=== PATIENT | male | born 1950 | race Caucasian/White ===

== ENCOUNTER 2020-09-04 14:26 | Emergency (ER) | payer MEDICARE, SELFPAY ==
[2020-09-04] VITALS (22 sets, daily range): BP systolic 122–160; BP diastolic 59–106; PULSE 47–68; RESP 15–30; TEMP 36.6; O2SAT 93–98
--- NOTE | 2020-09-04 14:39 | DI.CT.S_ITS ---
PROCEDURE: CT HEAD/BRAIN WO CON INDICATIONS: vomiting, dizzyness TECHNIQUE: Noncontrast 4.5 mm thick angled axial sections acquired from the foramen magnum to the vertex, with coronal and sagittal reformats. For radiation dose reduction, the following was used: automated exposure control, adjustment of mA and/or kV according to patient size. COMPARISON: None. FINDINGS: Image quality: Excellent. CSF spaces: Basal cisterns are patent. No extra-axial fluid collections. The ventricles are symmetric in size and shape. Brain: No intracranial bleeds or masses. There is cerebral volume loss for age, with resultant ventricular and sulcal prominence. There are periventricular and deep white matter chronic small vessel ischemic changes. There is intracranial internal carotid artery atherosclerosis. Skull and face: Calvarium and visualized facial bones appear intact, without suspicious lesions. Sinuses: Visualized sinuses and mastoids are clear. IMPRESSION: No mass lesion seen, no ischemic injury found. No hydrocephalus identified. Normal for age. Dictated by: Mathew Orellana M.D. on 09/04/2020 at 14:53 Approved by: Mathew Orellana M.D. on 09/04/2020 at 14:54
[2020-09-04 15:13] LABS: Add Manual Diff / Slide Review NO; Basophils Absolute Auto 0 /uL (0-100); Basophils Percent Auto 0.2 % (0-2); Creatine Kinase 267 U/L (55-170); Eosinophils Absolute Auto 0 /uL (0-450); Hematocrit 44.9 % (41-53); Hemoglobin 15.3 g/dL (13.5-17.5); Lymphocytes Absolute Auto 500 /uL (1100-4500); Lymphocytes Percent Auto 3.2 % (25-40); Mean Corpuscular Hemoglobin 31.9 PG (26-34); Mean Corpuscular Volume 93.7 fL (80-100); Monocytes Absolute Auto 600 /uL (0-900); Monocytes Percent Auto 4.2 % (3-14); Neutrophils Absolute Auto 13700 /uL (1500-7000); Neutrophils Percent Auto 92.4 % (50-75); Platelet Count 183 X10^3/uL (150-400); Red Blood Cell Count 4.79 X10^6/uL (4.5-5.9); Red Cell Distribution Width 13.4 % (11.6-14.8); White Blood Cell Count 14.9 X10^3/uL (4.5-11.0)
[2020-09-04 15:14] LABS: Alanine Aminotransferase 21 IU/L (<50); Albumin 4.8 g/dL (3.5-5.0); Albumin Globulin Ratio 1.7 (1.0-2.8); Alkaline Phosphatase 75 U/L (38-126); Aspartate Aminotransferase 32 IU/L (17-59); BUN Creatinine Ratio 23.5 (6-22); Bilirubin Total 1.1 mg/dL (0.2-1.3); Blood Urea Nitrogen 19 mg/dL (9-20); Calcium 9.4 mg/dL (8.4-10.2); Carbon Dioxide 27 mmol/L (22-32); Chloride 101 mmol/L (98-107); Estimated Glomerular Filt Rate > 60.0 mL/min (>60); Globulin 2.8 g/dL (1.7-4.1); Glucose 154 mg/dL (80-110); HEMOLYSIS < 15 (0-50); Potassium 3.5 mmol/L (3.4-5.1); Sodium 137 mmol/L (137-145); Total Protein 7.6 g/dL (6.3-8.2)
[2020-09-04 15:17] LABS: Prothrombin Time 11.9 SECONDS (10.1-12.7)
[2020-09-04 15:26] LABS: Troponin I 0.014 ng/mL (0.01-0.034)
[2020-09-04 15:28] LABS: Creatine Kinase MB 7.98 ng/mL (<2.37)
--- NOTE | 2020-09-04 15:31 | DI.RAD.S_ITS ---
PROCEDURE: XR CHEST 1V INDICATIONS: Flu like symptoms TECHNIQUE: One view of the chest was acquired. COMPARISON: None. FINDINGS: Surgical changes and devices: None. Lungs and pleura: Lungs are mildly abnormal with a mild interstitial prominence. No pleural effusions or pneumothorax. Mediastinum: Mediastinal contours appear normal. Heart size is normal. Bones and chest wall: No suspicious bony lesions. Overlying soft tissues appear unremarkable. IMPRESSION: Mild interstitial prominence, chronicity uncertain. Definite pneumonia is not found. Dictated by: Mathew Orellana M.D. on 09/04/2020 at 15:56 Approved by: Mathew Orellana M.D. on 09/04/2020 at 15:57
[2020-09-04 15:55] LABS: COVID19 -Nasal RAPID Negative (Negative)
--- NOTE | 2020-09-04 16:19 | ED.DIZZY ---
HPI - Dizziness General Chief Complaint: Dizziness Stated Complaint: vomiting/ loss of balance to the left Time Seen by Provider: 09/04/20 15:56 Source: patient Mode of arrival: Ambulatory Limitations: no limitations History of Present Illness HPI Narrative: This is a 70-year-old male comes emergency department he states about 1600 yesterday he felt nauseated and 1 episode of vomiting but felt fine. At 8:00 a.m. he vomited again and was stumbling, he noticed that he always felt his left side he felt like the room was spinning to the left and occasionally felt like the lights were spinning when he would hold still and they would move left. Patient denies any headache, he denied any double vision but states here during our NIH exam he did note some double vision briefly. No chest pain, no shortness of breath, no abdominal pain. No syncope. No numbness, tingling or weakness in his extremities he did not appreciated any speech changes. Did not know any facial drooping but states he did not really look and a mere. He does live alone. He has several skin tears on the left arm. States he has past medical history of an WI with a stent placed in 2011, he had reaction to Plavix sounds like a GI bleed. He does not take any medications and has not seen a physician in the last 8 years. He has had EGD after Plavix and noted to have an ulcer and his stent placement are his only prior surgeries. No tobacco, no alcohol, occasional THC. He does live alone. Related Data Home Medications Medication Instructions Recorded Confirmed No Known Home Medications 09/04/20 09/04/20 Allergies Allergy/AdvReac Type Severity Reaction Status Date / Time No Known Drug Allergies Allergy Verified 09/04/20 14:36 Review of Systems Review of Systems ROS Unobtainable: All systems reviewed & are unremarkable except as noted in HPI and below Patient History Medical History (Updated 09/04/20 @ 16:51 by Kelsey López DO) Myocardial infarction (Acute) Surgical History (Updated 09/04/20 @ 16:51 by Kelsey López DO) H/O heart artery stent (Acute) Social History Smoking Status: Never smoker Smoking Status: Never smoker Substance Use Type: marijuana Exam Narrative Exam Narrative: GEN: well nourished, well appearing male, alert and oriented x 3, patient appears to be in mild distress. HEENT: Atraumatic, pupils are equal round reactive to light, patient's right pupil is 1 mm in difference to the left when does not have light shining any pupils, when I shine a light they are equal, extraocular movements are intact, no nystagmus appreciated, nares are clear, TMs are clear with no fluid, there is no conjunctival pallor. Throat is clear without any exudates, erythema, tonsillar enlargement or uvular deviation HEART: Regular rate and rhythm without murmur, clicks, rubs. No carotid bruits, pulses are equal in upper and lower extremities LUNGS:Lungs clear to auscultation, no wheezes, rales, crackles, chest moves symmetrically ABD:bowel sounds normal, soft, non-tender, no guarding, rebound, rigidity, no masses noted, no hepatosplenomegaly MSCL: Non-tender, no muscle atrophy, muscles strength 5/5 upper and lower extremities, full range of motion NEURO:CN 2-12 intact, sensation normal, reflexes 2/4 upper and lower extremities. finger nose finger test normal, patient has difficulty with left leg on heel-fulton, no issues with right leg on heel-fulton Initial Vital Signs Initial Vital Signs: Vital Signs Temperature 97.8 F 09/04/20 14:34 Pulse Rate 52 L 09/04/20 14:34 Respiratory Rate 22 09/04/20 14:34 Blood Pressure 160/74 H 09/04/20 14:34 Pulse Oximetry 98 09/04/20 14:34 Scores NIH Stroke Scale Level of Conciousness: Alert, keenly responsive Ask month/age: Answers both questions correctly. Open/close eyes, close hand: Performs both tasks correctly Best gaze horizontal: Normal Visual beyer: Partial hemianopia (? ) Facial palsy: Normal symetrical movement Left arm drift: No drift for full 10 sec Right arm drift: No drift for full 10 sec Left leg drift: No drift for full 5 sec Right leg drift: No drift for full 5 sec Limb ataxia: Present in one limb Sensory on face/arms/legs: Normal, no sensory loss Best language: No aphasia, normal Dysarthria: Normal Extinction or inattention: No abnormality Total NIH Stroke scale score: 2 Course Orders Ordered: ED Orders 09/04/20 14:39 CT head/brain wo con Stat Urinalysis Screen (Dip Only) Stat EKG-12 Lead Stat 09/04/20 14:52 Complete Blood Count AUTO DIFF Stat Comprehensive Metabolic Panel Stat Prothrombin Time INR Stat cardiac panel [Troponin & CK Cardiac Panel] Stat 09/04/20 15:31 XR chest 1V Stat 09/04/20 15:35 COVID19 -ED/INPAT/OR/L&D Stat 09/04/20 16:47 CT angio head and neck Stat Discontinued Medications Aspirin (Aspirin Chew) 324 mg PO NOW ONE Stop: 09/04/20 16:48 Last Admin: 09/04/20 17:17 Dose: 324 mg Documented by: BTONER Ondansetron HCl (Zofran) 4 mg IV NOW ONE Stop: 09/04/20 17:19 Last Admin: 09/04/20 17:21 Dose: 4 mg Documented by: BTONER Consultations Consultation #1: Telestroke paged. Spoke with Dr. Bridges from [place], patient may be code IR candidate. She feels will likely transfer even if he is not. Time: 18:18 Vital Signs Vital signs: Vital Signs - 8 hr 09/04/20 14:34 09/04/20 14:55 09/04/20 15:00 Temperature 97.8 F Pulse Rate 52 L 53 L 48 L Respiratory Rate 22 22 19 Blood Pressure 160/74 H 148/67 H Pulse Oximetry 98 98 97 09/04/20 15:30 09/04/20 15:31 Temperature Pulse Rate 50 L 47 L Respiratory Rate 18 16 Blood Pressure 141/66 H Pulse Oximetry 94 96 MDM - Dizziness Lab Data Attestation: I reviewed the patient's lab results. Lab results narrative: Patient has leukocytosis at 14.9, normal hemoglobin and platelets, glucose is 154 but otherwise normal electrolytes, CK is 267 with a elevation of CK-MB and min troponin is 0.014 and a normal range. Result diagrams: 09/04/20 14:52 09/04/20 14:52 Labs: Lab Results 09/04/20 09/04/20 09/04/20 Range/Units 14:52 14:52 14:52 WBC 14.9 H (4.5-11.0) X10^3/uL RBC 4.79 (4.5-5.9) X10^6/uL Hgb 15.3 (13.5-17.5) g/dL Hct 44.9 (41-53) % MCV 93.7 (80-100) fL MCH 31.9 (26-34) PG MCHC 34.0 (30-36) % RDW 13.4 (11.6-14.8) % Plt Count 183 (150-400) X10^3/uL Neut % (Auto) 92.4 H (50-75) % Lymph % (Auto) 3.2 L (25-40) % [place] % (Auto) 4.2 (3-14) % Eos % (Auto) 0.0 L (2-4) % Baso % (Auto) 0.2 (0-2) % Neut # (Auto) 32647 H (8712-7703) /uL Lymph # (Auto) 500 L (1133-4046) /uL [place] # (Auto) 600 (0-900) /uL Eos # (Auto) 0 (0-450) /uL Baso # (Auto) 0 (0-100) /uL PT 11.9 (10.1-12.7) SECONDS INR 1.0 (0.9-1.3) Sodium 137 (137-145) mmol/L Potassium 3.5 (3.4-5.1) mmol/L Chloride 101 (98-107) mmol/L Carbon Dioxide 27 (22-32) mmol/L BUN 19 (9-20) mg/dL Creatinine 0.81 (0.66-1.25) mg/dL Estimated GFR > 60.0 (>60) mL/min BUN/Creatinine Ratio 23.5 H (6-22) Glucose 154 H (80-110) mg/dL Calcium 9.4 (8.4-10.2) mg/dL Total Bilirubin 1.1 (0.2-1.3) mg/dL AST 32 (17-59) IU/L ALT 21 (<50) IU/L Alkaline Phosphatase 75 (38-126) U/L Total Creatine Kinase (55-170) U/L CK-MB (CK-2) (<2.37) ng/mL CK-MB (CK-2) Rel Index (1.5-5.0) % Troponin I Cancelled Total Protein 7.6 (6.3-8.2) g/dL Albumin 4.8 (3.5-5.0) g/dL Globulin 2.8 (1.7-4.1) g/dL Albumin/Globulin Ratio 1.7 (1.0-2.8) COVID-19 PCR (Negative) 09/04/20 09/04/20 Range/Units 14:52 15:35 WBC (4.5-11.0) X10^3/uL RBC (4.5-5.9) X10^6/uL Hgb (13.5-17.5) g/dL Hct (41-53) % MCV (80-100) fL MCH (26-34) PG MCHC (30-36) % RDW (11.6-14.8) % Plt Count (150-400) X10^3/uL Neut % (Auto) (50-75) % Lymph % (Auto) (25-40) % [place] % (Auto) (3-14) % Eos % (Auto) (2-4) % Baso % (Auto) (0-2) % Neut # (Auto) (8127-5796) /uL Lymph # (Auto) (9554-1460) /uL [place] # (Auto) (0-900) /uL Eos # (Auto) (0-450) /uL Baso # (Auto) (0-100) /uL PT (10.1-12.7) SECONDS INR (0.9-1.3) Sodium (137-145) mmol/L Potassium (3.4-5.1) mmol/L Chloride (98-107) mmol/L Carbon Dioxide (22-32) mmol/L BUN (9-20) mg/dL Creatinine (0.66-1.25) mg/dL Estimated GFR (>60) mL/min BUN/Creatinine Ratio (6-22) Glucose (80-110) mg/dL Calcium (8.4-10.2) mg/dL Total Bilirubin (0.2-1.3) mg/dL AST (17-59) IU/L ALT (<50) IU/L Alkaline Phosphatase (38-126) U/L Total Creatine Kinase 267 H (55-170) U/L CK-MB (CK-2) 7.98 H (<2.37) ng/mL CK-MB (CK-2) Rel Index 3.0 (1.5-5.0) % Troponin I 0.014 Total Protein (6.3-8.2) g/dL Albumin (3.5-5.0) g/dL Globulin (1.7-4.1) g/dL Albumin/Globulin Ratio (1.0-2.8) COVID-19 PCR Negative (Negative) Imaging Data CT scan - head: Attestation: I personally reviewed and interpreted this imaging study as follows: Radiologist's Impression: Matteo Zayas 70 M [address] [address] [address] Scan Report Signed Patient: Matteo Zayas CMR#: [id number] : 1950cct:[id number] Age/Sex: 70 / MDate of Service: 09/04/20 Loc: ED Accession Number: [id number] Procedure: CT head/brain wo con Ordering Provider: Kelsey López D.O. PROCEDURE: CT HEAD/BRAIN WO CON INDICATIONS: vomiting, dizzyness TECHNIQUE: Noncontrast 4.5 mm thick angled axial sections acquired from the foramen magnum to the vertex, with coronal and sagittal reformats. For radiation dose reduction, the following was used: automated exposure control, adjustment of mA and/or kV according to patient size. COMPARISON: None. FINDINGS: Image quality: Excellent. CSF spaces: Basal cisterns are patent. No extra-axial fluid collections. The ventricles are symmetric in size and shape. Brain: No intracranial bleeds or masses. There is cerebral volume loss for age, with resultant ventricular and sulcal prominence. There are periventricular and deep white matter chronic small vessel ischemic changes. There is intracranial internal carotid artery atherosclerosis. Skull and face: Calvarium and visualized facial bones appear intact, without suspicious lesions. Sinuses: Visualized sinuses and mastoids are clear. IMPRESSION: No mass lesion seen, no ischemic injury found. No hydrocephalus identified. Normal for age. Dictated by: Mathew Orellana M.D. on 09/04/2020 at 14:53 Approved by: Mathew Orellana M.D. on 09/04/2020 at 14:54 Chest x-ray: Attestation: I personally reviewed and interpreted this imaging study as follows: Radiologist's Impression: [address] [address] XRay Report Signed Patient: Matteo Zayas CMR#: [id number] : 8Acct:[id number] Age/Sex: 70 / MDate of Service: 09/04/20 Loc: ED Accession Number: [id number] Procedure: XR chest 1V Ordering Provider: Kelsey López D.O. PROCEDURE: XR CHEST 1V INDICATIONS: Flu like symptoms TECHNIQUE: One view of the chest was acquired. COMPARISON: None. FINDINGS: Surgical changes and devices: None. Lungs and pleura: Lungs are mildly abnormal with a mild interstitial prominence. No pleural effusions or pneumothorax. Mediastinum: Mediastinal contours appear normal. Heart size is normal. Bones and chest wall: No suspicious bony lesions. Overlying soft tissues appear unremarkable. IMPRESSION: Mild interstitial prominence, chronicity uncertain. Definite pneumonia is not found. Dictated by: Mathew Orellana M.D. on 09/04/2020 at 15:56 Approved by: Mathew Orellana M.D. on 09/04/2020 at 15:57 CTA - brain/neck: Attestation: I personally reviewed and interpreted this imaging study as follows: Radiologist's Impression: Thomas López, DO [facility] Patient Imaging - Matteo Zayas 70 M 1950 ACTIVITY DATE EXAM STATUS AUTHOR 09/04/20 16:47 Signed Skyler Lo 09/04/20 15:31 Signed Mathew Orellana 09/04/20 14:[address] [address] [address] Scan Report Signed Patient: Matteo Zayas CMR#: [id number] : 8Acct:[id number] Age/Sex: 70 / MDate of Service: 09/04/20 Loc: ED Accession Number: [id number] Procedure: CT angio head and neck Ordering Provider: Kelsey López D.O. PROCEDURE: CT ANGIO HEAD AND NECK INDICATIONS: vertigo type symptoms, falls to left TECHNIQUE: After the administration of intravenous contrast, 1 mm thick sections acquired from the aortic arch through the [place] of [place]. Post-contrast 4.5 mm thick sections then re-acquired from the foramen magnum to the vertex. 3-dimensional lffvsny-akjdnuben-ritftcpsol (MIP) and/or volume rendering reformats were acquired of the central intracranial vasculature and neck separately. COMPARISON: [facility], CR, XR CHEST 1V, 09/04/2020, 15:33. [facility], CT, CT HEAD/BRAIN WO CON, 09/04/2020, 14:38. FINDINGS: Image quality: Excellent. BRAIN: CSF spaces: Ventricles are normal in size and shape. Basal cisterns are patent. No extra-axial fluid collections. Brain: No midline shift. No intracranial bleeds or masses. [place]-white matter interface appears intact. Skull and face: Calvarium and facial bones appear intact, without suspicious lesions. Orbits appear normal. Sinuses: Sinuses and mastoids are clear. HEAD CT ANGIOGRAPHY: Anterior circulation: Intracranial internal carotid arteries are normal in size and flow. The flow within the paired anterior cerebral arteries is normal and symmetric. The flow within the middle cerebral arteries is normal and symmetric. The anterior communicating artery is seen. No aneurysms are seen. Posterior circulation: Areas of prominent stenosis (at least 90%) can be seen within the right V4 segment. Given the appearance, please consider intramural thrombus. The left V4 segment is within normal limits. There is a normal appearing basilar artery. Flow within the posterior cerebral arteries is normal and symmetric. No aneurysms are seen. NECK CT ANGIOGRAPHY: Carotid system: The great vessels demonstrate a conventional anatomy as they arise from the aortic arch. The origins of the common carotid arteries appear patent. The common carotid arteries demonstrate normal caliber and courses. The bifurcation regions demonstrate atherosclerotic calcification and irregularity. There is approximately 70% stenosis seen involving the right proximal internal carotid artery. There is no hemodynamically significant stenosis seen involving the left proximal internal carotid artery. The more distal internal carotid arteries demonstrate normal caliber. The internal carotid arteries demonstrate prominent tortuosity. Posterior circulation: The origins of the vertebral arteries both appear widely patent. The more superior extracranial portions of both vertebral arteries also demonstrate normal courses and calibers. They join to form a normal appearing basilar artery. Soft tissues: Visualized neck soft tissues demonstrate no suspicious abnormalities. Bones: No suspicious bony lesions. There is a chronic appearing anterior wedge deformity of T3, with approximately 50% loss of height. Age-appropriate bony degenerative changes are seen. IMPRESSION: Focal high-grade stenosis seen involving the right V4 segment. Given the appearance, please consider intramural thrombus. No findings of dissection can be seen. There is approximately 70% stenosis seen involving the right proximal internal carotid artery. Remote appearing T3 wedge deformity. Any quantitative measurements of stenosis were performed using NASCET criteria. Dictated by: Skyler Lo M.D. on 09/04/2020 at 17:01 Approved by: Skyler Lo M.D. on 09/04/2020 at 17:06 ECG Data Attestation: I personally reviewed and interpreted this ECG as follows: Prior ECG tracings: available for review Interpretation: Sinus bradycardia rate of 46 P are 181 QRS of 110 and QTC of 425. Patient has 3 of inversion in 2 3 and AVF. No elevation noted. T-wave inverted in lateral leads as well. Patient has a prior EKG from 2013 which does have a little bit of ST depression in V4 through 6 but does not have the other ST changes noted today. MDM Narrative Medical decision making narrative: Patient comes in today with greater than 12 hours on set from his symptoms at approximately 8-9 p.m.. Patient has continued to have symptoms. Initial head CT is negative for bleed, he was given aspirin and CT angiography was obtained patient may be a candidate for code IR. Labs showed leukocytosis but no other major changes he does have changes on his EKG but has a history of prior cardiac stent which he has not followed for and does not take any medications regularly, he has not followed with a primary care physician for at least 8 years. Angiography shows a focal stenosis at the right V4 segment. Discussed with telestroke, awaiting callback as patient is potential code IR although very close on timeframe from transfer center. Patient given ASA 324mg and has not had any worsening symptoms but not improving. Signed out to Dr. Pond while awaiting official word on transfer. Critical Care Time Critical Care Time Critical Care Time: Yes Total Critical Care Time: 90 Attestation: The high probability of a clinically significant, sudden or life threatening deterioration of the [neurologic] system(s) required my full and direct attention, intervention and personal management. The aggregate critical care time was [90] minutes. This time is in addition to time spent performing reported procedures but includes the following: [x] Data Review and interpretation [x] Patient assessment and monitoring of vital signs [x] Documentation [x] Medication orders and management Discharge Plan Departure Patient Disposition: [facility] Clinical Impression: Acute CVA (cerebrovascular accident) Prescriptions: No Action No Known Home Medications RF: 0
--- NOTE | 2020-09-04 16:47 | DI.CT.S_ITS ---
PROCEDURE: CT ANGIO HEAD AND NECK INDICATIONS: vertigo type symptoms, falls to left TECHNIQUE: After the administration of intravenous contrast, 1 mm thick sections acquired from the aortic arch through the [place] of [place]. Post-contrast 4.5 mm thick sections then re-acquired from the foramen magnum to the vertex. 3-dimensional eqyvuzh-smqpivuwk-vtauaesfut (MIP) and/or volume rendering reformats were acquired of the central intracranial vasculature and neck separately. COMPARISON: [facility], CR, XR CHEST 1V, 09/04/2020, 15:33. [facility], CT, CT HEAD/BRAIN WO CON, 09/04/2020, 14:38. FINDINGS: Image quality: Excellent. BRAIN: CSF spaces: Ventricles are normal in size and shape. Basal cisterns are patent. No extra-axial fluid collections. Brain: No midline shift. No intracranial bleeds or masses. [place]-white matter interface appears intact. Skull and face: Calvarium and facial bones appear intact, without suspicious lesions. Orbits appear normal. Sinuses: Sinuses and mastoids are clear. HEAD CT ANGIOGRAPHY: Anterior circulation: Intracranial internal carotid arteries are normal in size and flow. The flow within the paired anterior cerebral arteries is normal and symmetric. The flow within the middle cerebral arteries is normal and symmetric. The anterior communicating artery is seen. No aneurysms are seen. Posterior circulation: Areas of prominent stenosis (at least 90%) can be seen within the right V4 segment. Given the appearance, please consider intramural thrombus. The left V4 segment is within normal limits. There is a normal appearing basilar artery. Flow within the posterior cerebral arteries is normal and symmetric. No aneurysms are seen. NECK CT ANGIOGRAPHY: Carotid system: The great vessels demonstrate a conventional anatomy as they arise from the aortic arch. The origins of the common carotid arteries appear patent. The common carotid arteries demonstrate normal caliber and courses. The bifurcation regions demonstrate atherosclerotic calcification and irregularity. There is approximately 70% stenosis seen involving the right proximal internal carotid artery. There is no hemodynamically significant stenosis seen involving the left proximal internal carotid artery. The more distal internal carotid arteries demonstrate normal caliber. The internal carotid arteries demonstrate prominent tortuosity. Posterior circulation: The origins of the vertebral arteries both appear widely patent. The more superior extracranial portions of both vertebral arteries also demonstrate normal courses and calibers. They join to form a normal appearing basilar artery. Soft tissues: Visualized neck soft tissues demonstrate no suspicious abnormalities. Bones: No suspicious bony lesions. There is a chronic appearing anterior wedge deformity of T3, with approximately 50% loss of height. Age-appropriate bony degenerative changes are seen. IMPRESSION: Focal high-grade stenosis seen involving the right V4 segment. Given the appearance, please consider intramural thrombus. No findings of dissection can be seen. There is approximately 70% stenosis seen involving the right proximal internal carotid artery. Remote appearing T3 wedge deformity. Any quantitative measurements of stenosis were performed using NASCET criteria. Dictated by: Skyler Lo M.D. on 09/04/2020 at 17:01 Approved by: Skyler Lo M.D. on 09/04/2020 at 17:06
--- NOTE | 2020-09-04 16:50 | PC.NURSE ---
left arm has scattered bruising and skin tears.
[2020-09-04] MEDS: ASPIRIN 81 MG CHEW TAB 324 MG PO (17:17)
[2020-09-04] MEDS: ONDANSETRON 4 MG/2 ML INJ IV (17:21)
[2020-09-04 19:56] LABS: Bacteria Urine None Seen
[2020-09-04 19:58] LABS: Appearance Urine UA CLEAR; Bilirubin Urine UA NEGATIVE (NEGATIVE); Color Urine UA YELLOW; Glucose Urine UA NEGATIVE (Negative); Ketones Urine UA 1+ (NEGATIVE); Leukocyte Esterase Urine UA NEGATIVE (NEGATIVE); Nitrite Urine UA NEGATIVE (Negative); Occult Blood Urine UA TRACE-LYSED (Negative); Protein Urine UA TRACE (Negative); Specific Gravity Urine UA <=1.005 (1.000-1.035); Urobilinogen Urine UA 0.2 E.U./dL (0.2)
[2020-09-04 20:08] LABS: Culture Indicated Urine Cult Not Indicated; RBC Urine 0-1/HPF (0-5/HPF); WBC Urine 0-1/HPF (0-5/HPF)
== END 2020-09-04 22:58 | disposition short-term general hospital (02) ==
PROVIDERS: Emergency Provider Emergency Medicine
DX: I63.9 Cerebral infarction, unspecified (principal); R42 Dizziness and giddiness; R68.89 Other general symptoms and signs; R00.1 Bradycardia, unspecified
CPT/HCPCS: 36415; 70450; 70496; 70498; 71045; 80053; 81003; 81015; 82550; 82553; 84484; 85025; 85610; 87635; 93005; 96374; 99285; 99291; 99292; J2405; Q9967

== ENCOUNTER 2021-02-02 15:59 | Emergency (ER) | payer OTHER, SELFPAY ==
[2021-02-02 16:04] VITALS: BP 130/90; PULSE 60; RESP 14; TEMP 36.2; O2SAT 98; BMI 25.7
--- NOTE | 2021-02-02 16:05 | ED.EXTPRO ---
HPI - Extremity Problem General Chief complaint: Extremity Injury, Upper Stated complaint: thinks broke his left thumb Time Seen by Provider: 02/02/21 16:01 Source: patient Mode of arrival: Ambulatory Limitations: no limitations History of Present Illness HPI Narrative: 70-year-old male nonsmoker with history of stroke and coronary artery disease presents a chief complaint of an accidental left thumb injury just prior to arrival. He states that he was using a saw in his shop and the piece of metal he was working with foot back and hit him on the tip of his left thumb. He now has significant pain swelling and discoloration. There is no significant cut but he has a superficial abrasion on the top of his thumb. He states his last tetanus was greater than 20 years ago. He denies other injury and is otherwise well and free of complaint. His pain is worse with motion and improves with rest. He denies any numbness, tingling or weakness MD Complaint: extremity pain Onset (ago): minute(s) Pain Consistency: constant Location: left Quality: aching Radiation: none Relieving factors: immobilization and rest Exacerbating factors: range of motion and palpation Associated symptoms: denies other symptoms Related Data Home Medications Medication Instructions Recorded Confirmed No Known Home Medications 09/04/20 09/04/20 Allergies Allergy/AdvReac Type Severity Reaction Status Date / Time No Known Drug Allergies Allergy Verified 02/02/21 16:07 Review of Systems Constitutional Constitutional: Denies chills, Denies fatigue, Denies fever(s), Denies frequent falls, Denies lethargy and Denies weakness Eyes Eyes: Denies change in vision, Denies eye discharge, Denies irritation and Denies loss of vision ENT Ears, Nose, Mouth, and Throat: Denies change in voice, Denies dizziness, Denies neck pain, Denies sore throat and Denies throat swelling Cardiovascular Cardiovascular: Denies chest pain, Denies irregular heart rhythm, Denies lightheadedness, Denies palpitations, Denies dyspnea, Denies dyspnea on exertion and Denies orthopnea Respiratory Respiratory: Denies cough, Denies dyspnea, Denies dyspnea on exertion and Denies wheezing Gastrointestinal Gastrointestinal: Denies abdominal pain, Denies change in bowel habits, Denies diarrhea, Denies nausea and Denies vomiting Musculoskeletal Musculoskeletal: Reports arthralgias, Reports joint swelling, Denies neck pain and Denies numbness Integumentary/Breasts Skin/Breast: Denies pruritus, Denies erythema, Denies rash and Denies wounds Neurologic Neurologic: Denies behavioral changes, Denies confusion, Denies dizziness, Denies frequent falls, Denies loss of vision, Denies numbness and Denies weakness Psychiatric Psychiatric: Denies anxiety, Denies behavioral changes, Denies confusion, Denies depression, Denies homicidal ideation and Denies suicidal ideation Endocrine Endocrine: Denies fatigue, Denies flushing and Denies palpitations Hematologic/Lymphatic Hematologic/Lymphatic: Denies easy bruising Allergic/Immunologic Allergic/Immunologic: Denies urticaria, Denies throat swelling and Denies wheezing Patient History Medical History Myocardial infarction Surgical History H/O heart artery stent Social History Smoking Status: Never smoker Smoking Status: Never smoker Substance Use Type: marijuana Exam Narrative Exam Narrative: GEN: AOx3 and in mild distress EYES: Pupils are equal, round, and reactive to light and accommodation. Extraoccular muscles are intact bilaterally. There is no subconjunctival hemorrhage or exudate. CHEST: Lungs are clear to auscultation bilaterally and free of wheezes, rales, or rhonchi. Heart rate is regular rhythm, there are no murmurs, clicks, rubs, or gallops. There is no chest wall tenderness. ABD: Abdomen is soft and nontender. There is no guarding or rebound. Bowel sounds are normal in all 4 quadrants. There is no mass or organomegaly. EXT: Decreased range of motion of left thumb secondary to pain, noted swelling and ecchymosis. Small superficial abrasion on dorsal thumb overlying interphalangeal joint, no active bleeding, no foreign body SKIN: Warm, pink, and dry. No erythema or rash Initial Vital Signs Initial Vital Signs: Vital Signs Temperature 97.1 F L 02/02/21 16:04 Pulse Rate 60 02/02/21 16:04 Respiratory Rate 14 02/02/21 16:04 Blood Pressure 130/90 02/02/21 16:04 Pulse Oximetry 98 02/02/21 16:04 Procedures Orthopedic Splinting/Casting Injury #1: Side: left Upper Extremity Injury Location: finger Upper Extremity Immobilizer: thumb spica Post splinting neuro exam: intact Post splinting vascular exam: intact Placed by: Nursing Course Orders Ordered: ED Orders 02/02/21 16:04 XR finger LT min 2V Stat Discontinued Medications Diphtheria/Tetanus/Acell Pertussis (Tet,Diph,Pertuss(Acell),Vac/Pf 0.5 Ml Syringe) 0.5 ml IM .ONCE ONE Stop: 02/02/21 16:05 Last Admin: 02/02/21 16:24 Dose: 0.5 ml Documented by: Vital Signs Vital signs: Vital Signs - 8 hr 02/02/21 16:04 Temperature 97.1 F L Pulse Rate 60 Respiratory Rate 14 Blood Pressure 130/90 Pulse Oximetry 98 MDM - Extremity (Nontraumatic) Imaging Data Extremity x-ray #1: Radiologist's Impression: [address] [id number] ReportSigned Patient: Matteo Zayas CMR#: [id number]: [id number]/Sex: 70 / MDate of Service: 02/02/21Loc: EDAccession Number: [id number] Procedure: XR finger LT min 2V Ordering Provider: Amadeo Munroe D.O. PROCEDURE: XR FINGER LT MIN 2V INDICATIONS: pain, injury, question fracture TECHNIQUE: AP hand, 2 views of the left finger(s) acquired. COMPARISON: None. FINDINGS: Bones: There is a comminuted fracture of the distal phalanx of the thumb. The fracture likely extends to the articular surface but is minimally displaced. Degenerative changes of the interphalangeal joints of the thumb and fingers are seen with joint space narrowing. Soft tissues: No suspicious soft tissue calcifications. IMPRESSION: Comminuted fracture of the distal phalanx of the thumb. The fracture likely extends to the articular surface but is minimally displaced. Dictated by: Patrick Jolley M.D. on 02/02/2021 at 16:32 Approved by: Patrick Jolley M.D. on 02/02/2021 at 16:34 Discharge Plan Departure Patient Disposition: Home Clinical Impression: Fracture of thumb Qualifiers: Encounter type: initial encounter Fracture type: closed Phalanx: distal Fracture alignment: displaced Laterality: left Qualified Code(s): S62.522A - Displaced fracture of distal phalanx of left thumb, initial encounter for closed fracture Instructions: DI for Finger Fracture Activity Restrictions/Additional Instructions: *You have been diagnosed with [left thumb fracture] *What to do: *Take medications as directed: Tylenol or Motrin for pain *Follow up with [facility] in 2-3 days, call for an appointment. Let them know you were seen in the Emergency Department and that we ask that you be seen in follow up *Return to ER if you should have any new, worsening or concerning symptoms, such as [increasing pain, numbness, tingling, weakness or other bothersome symptoms] Prescriptions: No Action No Known Home Medications RF: 0 Referrals: Kita Nogueira MD [Physician] -
[2021-02-02] MEDS: TET,DIPH,PERTUSS(ACELL),VAC/PF 0.5 ML SYRINGE IM (16:24)
== END 2021-02-02 16:53 | disposition home or self-care (01) ==
PROVIDERS: Emergency Provider Emergency Medicine
DX: S62.522A Displaced fracture of distal phalanx of left thumb, initial encounter for closed fracture (principal); W20.8XXA Other cause of strike by thrown, projected or falling object, initial encounter; Z23 Encounter for immunization
CPT/HCPCS: 29125; 73140; 90471; 99283; 90715

== ENCOUNTER → 2023-10-10 09:58 | Outpatient (CLI) | payer OTHER, SELFPAY ==
[2023-10-10 10:56] LABS: Add Manual Diff / Slide Review NO; Basophils Absolute Auto 100 /uL (0-100); Basophils Percent Auto 0.9 % (0-2); Eosinophils Absolute Auto 500 /uL (0-450); Hematocrit 30.3 % (41-53); Hemoglobin 10.5 g/dL (13.5-17.5); Lymphocytes Absolute Auto 900 /uL (1100-4500); Lymphocytes Percent Auto 11.8 % (25-40); Mean Corpuscular HGB Conc 34.6 % (30-36); Mean Corpuscular Hemoglobin 31.9 PG (26-34); Mean Corpuscular Volume 92.1 fL (80-100); Monocytes Absolute Auto 800 /uL (0-900); Neutrophils Absolute Auto 5300 /uL (1500-7000); Neutrophils Percent Auto 70.3 % (50-75); Platelet Count 244 X10^3/uL (150-400); Red Blood Cell Count 3.29 X10^6/uL (4.5-5.9); Red Cell Distribution Width 13.7 % (11.6-14.8); White Blood Cell Count 7.6 X10^3/uL (4.5-11.0)
[2023-10-10 11:30] LABS: Blood Urea Nitrogen 29 mg/dL (9-20); Calcium 9.3 mg/dL (8.4-10.2); Carbon Dioxide 22 mmol/L (22-32); Chloride 100 mmol/L (98-107); Estimated Glomerular Filt Rate 53 mL/min (>60); Glucose 100 mg/dL (80-110); HEMOLYSIS < 15 (0-50); Potassium 4.2 mmol/L (3.4-5.1); Sodium 134 mmol/L (137-145)
== END ==
LOC: LAB 10:00
PROVIDERS: Referring Provider Physician Assistant; Visit Provider Physician Assistant
DX: Z48.812 Encounter for surgical aftercare following surgery on the circulatory system (principal)
CPT/HCPCS: 36415; 80048; 85025

== ENCOUNTER 2023-12-02 13:06 | Emergency (ER) | payer OTHER, SELFPAY ==
[2023-12-02] VITALS (32 sets, daily range): BP systolic 132–189; BP diastolic 64–102; PULSE 55–74; RESP 11–24; TEMP 36.4; O2SAT 91–100; BMI 26.5; BMI 25.5
--- NOTE | 2023-12-02 13:37 | DI.RAD.S_ITS ---
PROCEDURE: XR CHEST 1V INDICATIONS: altered mental status TECHNIQUE: One view of the chest was acquired. COMPARISON: [facility], CR, XR CHEST 1V, 09/04/2020, 15:33. FINDINGS: Surgical changes and devices: Aortic stent. Lungs and pleura: Lungs are clear. No pleural effusions or pneumothorax. Mediastinum: Mediastinal contours appear normal. Heart size is normal. Bones and chest wall: No suspicious bony lesions. Overlying soft tissues appear unremarkable. IMPRESSION: No acute cardiopulmonary abnormality is seen. Dictated by: Aviva Long M.D. on 12/02/2023 at 13:50 Approved by: Aviva Long M.D. on 12/02/2023 at 13:50
--- NOTE | 2023-12-02 13:41 | DI.CT.S_ITS ---
PROCEDURE: CT HEAD/BRAIN WO CON INDICATIONS: confusion TECHNIQUE: Noncontrast 4.5 mm thick angled axial sections acquired from the foramen magnum to the vertex, with coronal and sagittal reformats. For radiation dose reduction, the following was used: automated exposure control, adjustment of mA and/or kV according to patient size. COMPARISON: [facility], CT, CT HEAD/BRAIN WO CON, 09/04/2020, 14:38. FINDINGS: Image quality: Diagnostic. CSF spaces: Basal cisterns are patent. No extra-axial fluid collections. The ventricles are symmetric in size and shape. Brain: No intracranial bleeds or masses. There is cerebral volume loss for age, with resultant ventricular and sulcal prominence. There are periventricular and deep white matter chronic small vessel ischemic changes. There is intracranial internal carotid artery atherosclerosis. Skull and face: Calvarium and visualized facial bones appear intact, without suspicious lesions. Sinuses: Visualized sinuses and mastoids are clear. IMPRESSION: No acute intracranial pathology. Dictated by: Aviva Long M.D. on 12/02/2023 at 13:55 Approved by: Aviva Long M.D. on 12/02/2023 at 13:56
--- NOTE | 2023-12-02 14:12 | PC.NURSE ---
Pt is aware of place, month, year and name. Unaware of president and thinks current president is Tristian. Pt also states he has stopped taking his medications because I forget and don't care. Encouraged to use call light. Call light within reach. Pt in view room by nurses station.
[2023-12-02 14:34] LABS: Add Manual Diff / Slide Review NO; Basophils Absolute Auto 0 /uL (0-100); Basophils Percent Auto 0.5 % (0-2); Eosinophils Absolute Auto 0 /uL (0-450); Eosinophils Percent Auto 0.5 % (2-4); Hematocrit 38.4 % (41-53); Hemoglobin 13.2 g/dL (13.5-17.5); Lymphocytes Absolute Auto 800 /uL (1100-4500); Lymphocytes Percent Auto 9.4 % (25-40); Mean Corpuscular HGB Conc 34.3 % (30-36); Mean Corpuscular Hemoglobin 30.6 PG (26-34); Mean Corpuscular Volume 89.3 fL (80-100); Monocytes Absolute Auto 700 /uL (0-900); Monocytes Percent Auto 8.3 % (3-14); Neutrophils Absolute Auto 6500 /uL (1500-7000); Neutrophils Percent Auto 81.3 % (50-75); Platelet Count 169 X10^3/uL (150-400); Red Cell Distribution Width 15.1 % (11.6-14.8)
[2023-12-02 14:49] LABS: Acetaminophen < 10 ug/mL (10-30); Creatine Kinase 43 U/L (55-170); Ethanol (ETOH) < 10 mg/dL; Salicylate < 1.0 mg/dL (<20)
[2023-12-02 14:50] LABS: Alanine Aminotransferase 15 IU/L (<50); Albumin 4.5 g/dL (3.5-5.0); Albumin Globulin Ratio 1.5 (1.0-2.8); Alkaline Phosphatase 78 U/L (38-126); Aspartate Aminotransferase 32 IU/L (17-59); BUN Creatinine Ratio 20.7 (6-22); Bilirubin Total 2.3 mg/dL (0.2-1.3); Blood Urea Nitrogen 29 mg/dL (9-20); Calcium 9.5 mg/dL (8.4-10.2); Carbon Dioxide 26 mmol/L (22-32); Chloride 101 mmol/L (98-107); Estimated Glomerular Filt Rate 52 mL/min (>60); Glucose 106 mg/dL (80-110); HEMOLYSIS 16 (0-50); Potassium 3.6 mmol/L (3.4-5.1); Sodium 136 mmol/L (137-145); Total Protein 7.5 g/dL (6.3-8.2)
[2023-12-02 15:11] LABS: Ammonia (NH3) < 9 umol/L (9-30)
[2023-12-02 15:22] LABS: Troponin I 0.211 ng/mL (0.01-0.034)
--- NOTE | 2023-12-02 15:32 | ED.AMS ---
HPI - Altered Mental Status <Kelsey López, DO - Last Filed: 12/03/23 08:19> General Chief Complaint: Altered Mental Status Stated Complaint: ? confusion, ? suicidal Time Seen by Provider: 12/02/23 13:41 Source: patient Mode of arrival: Ambulatory Limitations: no limitations History of Present Illness HPI narrative: 73-year-old male history of coronary artery disease, prior stroke and aortic TAVR. Patient was sent by EMS for confusion. Patient states he is felt unwell today he has had nausea particularly when he is upright. He states the room is not spinning he does not feel like he is going to pass out but he feels very unwell when he is upright. He denies headaches, he denies chest pain, denies abdominal back or flank pain. Denies any shortness of breath. Denies any new swelling in his extremities. He denies any fevers chills cold cough or congestion. Denies any other GI or urinary symptoms besides nausea. He states felt like he was going to vomit but did not. Patient states he does have a lot of memory issues and has had difficulty keeping track of his medications and follow up appointments and has not been taking his meds. He states he has had 2 cardiac stents in the past, had a valve replacement at [facility] in [place]. He knows that he had a prior stroke he does not think they needed any interventions to his brain but he has not sure. Patient states no tobacco, no alcohol he does use marijuana. He does not have a primary care that he follows with. He does have a social media content specialist that met with him today who was concerned about patient for confusion. Patient was found to have the flame on his stove. Carbon monoxide was checked and was negative. Patient states that he is trying to keep his home warm. There were also multiple firearms scattered around his house but unclear if that has a normal state of events or not. Patient states he does not feel suicidal he has no intent to harm himself or others. He states that sometimes if he had a bad diagnosis he would want to hurt himself but when we discuss his cardiac issues today he is interested in treatment and care. Related Data Home Medications Medication Instructions Recorded Confirmed amiodarone 200 mg tablet 200 mg PO DAILY 12/02/23 12/02/23 apixaban 5 mg tablet (Eliquis) 5 mg PO BID 12/02/23 12/02/23 losartan 25 mg tablet 25 mg PO DAILY 12/02/23 12/02/23 metoprolol succinate 25 mg 25 mg PO BID 12/02/23 12/02/23 tablet,extended release 24 hr pantoprazole 20 mg tablet,delayed 20 mg PO DAILY 12/02/23 12/02/23 release Allergies Allergy/AdvReac Type Severity Reaction Status Date / Time No Known Drug Allergies Allergy Verified 12/02/23 21:07 Review of Systems <Kelsey López DO - Last Filed: 12/03/23 08:19> Review of Systems ROS Unobtainable: All systems reviewed & are unremarkable except as noted in HPI and below Patient History <Kelsey López DO - Last Filed: 12/03/23 08:19> Medical History Myocardial infarction Surgical History H/O heart artery stent Social History Smoking Status: Never smoker Smoking Status: Never smoker alcohol intake frequency: holidays/special occasions only Substance Use Type: marijuana Exam <Kelsey López DO - Last Filed: 12/03/23 08:19> Narrative Exam Narrative: GENERAL: Alert and oriented x three, disheveled male in mild distress HEENT: Head normocephalic, atraumatic, EOMI, pupils reactive, face symmetric, moist mucous membranes NECK: Supple, full range of motion CARDIOVASCULAR: Regular rate and rhythm without murmurs, rubs or gallops. JVD. No swelling bilateral lower RESPIRATORY: Breath sounds equal bilaterally, no wheezes rales or rhonchi. ABDOMEN: Soft, nontender. Normoactive bowel sounds all 4 quadrants. No guarding or rebound, rigidity, no mass : No CVA tenderness EXTREMITIES: Normal range of motion, no clubbing or edema. Neurovascularly intact NEUROLOGICAL: Cranial nerves II through XII grossly intact. Moving all extremities SKIN: Warm, dry, no petechiae, no rashes or lesions. Initial Vital Signs Initial Vital Signs: Vital Signs Blood Pressure 179/84 H 12/02/23 13:09 Pulse Oximetry 100 12/02/23 13:09 Oxygen Delivery Method Room Air 12/02/23 13:09 <Kelsey Thomas MD - Last Filed: 12/03/23 00:06> Initial Vital Signs Initial Vital Signs: Vital Signs Blood Pressure 179/84 H 12/02/23 13:09 Pulse Oximetry 100 12/02/23 13:09 Oxygen Delivery Method Room Air 12/02/23 13:09 Course <Kelsey López DO - Last Filed: 12/03/23 08:19> Orders Ordered: Discontinued Medications Acetaminophen (Acetaminophen 325 Mg Tablet) 650 mg PO Q6H PRN PRN Reason: Pain, Moderate (4-6) Stop: 12/05/23 21:02 Aspirin (Aspirin 81 Mg Chew Tab) 324 mg PO NOW ONE Stop: 12/02/23 16:16 Last Admin: 12/02/23 16:32 Dose: 324 mg Documented By: ANABEL Heparin Sodium (Porcine) (Heparin 5,000 Unit/Ml Vial) 4,100 unit 60 unit/kg (4100 unit) IV NOW ONE Stop: 12/02/23 16:16 Last Admin: 12/02/23 16:44 Dose: 4,100 unit Documented By: SB Sodium Chloride (Normal Saline 0.9%) 1,000 mls @ 1,000 mls/hr IV BOLUS ONE Stop: 12/02/23 16:31 Last Infusion: 12/02/23 18:05 Dose: Infused Documented By: Infusion: 12/02/23 17:07 Dose: 1,000 mls/hr Documented By: Infusion: 12/02/23 16:36 Dose: 0 mls/hr Documented By: Admin: 12/02/23 16:30 Dose: 1,000 mls/hr Documented By: SB Heparin Sodium/Dextrose (Heparin Drip) 25,000 unit in 500 mls @ 16.329 mls/hr IV CONT MURIEL; Protocol Last Titration: 12/03/23 00:14 Dose: 9 units/kg/hr, 12.247 mls/hr Documented By: SB Co-signed By: GC Titration: 12/02/23 23:51 Dose: 9 units/kg/hr, 12.247 mls/hr Documented By: SB Co-signed By: GC Titration: 12/02/23 22:51 Dose: 0 units/kg/hr, 0 mls/hr Documented By: FLEX Co-signed By: FAY Admin: 12/02/23 16:45 Dose: 12 units/kg/hr, 16.329 mls/hr Documented By: ANABEL Co-signed By: JOSE A Metoprolol Succinate (Metoprolol Er 25 Mg Tablet) 25 mg PO BID MURIEL Last Admin: 12/02/23 21:31 Dose: 25 mg Documented By: FAY Vital Signs Vital signs: Vital Signs - 8 hr 12/02/23 16:30 12/02/23 16:30 12/02/23 17:00 Pulse Rate 58 L 57 L Respiratory Rate 15 Blood Pressure 167/99 H Blood Pressure [Left Arm] Pulse Oximetry 95 98 Oxygen Delivery Method Room Air 12/02/23 17:10 12/02/23 17:10 12/02/23 17:30 Pulse Rate 56 L 61 Respiratory Rate 17 14 Blood Pressure 189/93 H Blood Pressure [Left Arm] Pulse Oximetry 97 96 Oxygen Delivery Method 12/02/23 17:31 12/02/23 17:31 12/02/23 18:00 Pulse Rate 61 Respiratory Rate Blood Pressure 167/79 H 155/80 H Blood Pressure [Left Arm] Pulse Oximetry 95 Oxygen Delivery Method Room Air 12/02/23 18:00 12/02/23 18:30 12/02/23 18:30 Pulse Rate 66 62 Respiratory Rate 16 14 Blood Pressure 164/75 H Blood Pressure [Left Arm] Pulse Oximetry 94 93 Oxygen Delivery Method Room Air Room Air 12/02/23 19:00 12/02/23 19:00 12/02/23 19:30 Pulse Rate 62 62 Respiratory Rate 14 11 L Blood Pressure 165/80 H Blood Pressure [Left Arm] Pulse Oximetry 94 94 Oxygen Delivery Method 12/02/23 19:30 12/02/23 20:00 12/02/23 20:00 Pulse Rate 62 Respiratory Rate 12 Blood Pressure 153/73 H 147/91 H Blood Pressure [Left Arm] Pulse Oximetry 96 Oxygen Delivery Method Room Air 12/02/23 20:30 12/02/23 20:30 12/02/23 21:00 Pulse Rate 74 68 Respiratory Rate 22 24 Blood Pressure 132/93 H Blood Pressure [Left Arm] Pulse Oximetry 95 95 Oxygen Delivery Method Room Air 12/02/23 21:01 12/02/23 21:01 12/02/23 21:30 Pulse Rate 72 61 Respiratory Rate 24 18 Blood Pressure 163/82 H Blood Pressure [Left Arm] Pulse Oximetry 95 91 Oxygen Delivery Method 12/02/23 21:31 12/02/23 21:31 12/02/23 21:55 Pulse Rate 67 60 Respiratory Rate 18 Blood Pressure 150/77 H Blood Pressure [Left Arm] 150/77 H Pulse Oximetry 95 95 Oxygen Delivery Method Room Air 12/02/23 21:59 12/02/23 22:00 12/02/23 22:00 Pulse Rate 61 Respiratory Rate 18 Blood Pressure 145/92 H Blood Pressure [Left Arm] Pulse Oximetry 94 Oxygen Delivery Method Room Air Room Air 12/02/23 22:30 12/02/23 22:30 12/02/23 22:41 Pulse Rate 62 63 Respiratory Rate 12 Blood Pressure 134/65 134/65 Blood Pressure [Left Arm] Pulse Oximetry 93 Oxygen Delivery Method Room Air 12/02/23 23:00 12/02/23 23:00 12/02/23 23:30 Pulse Rate 57 L 63 Respiratory Rate Blood Pressure 147/78 H Blood Pressure [Left Arm] Pulse Oximetry 92 97 Oxygen Delivery Method Room Air 12/02/23 23:30 Pulse Rate Respiratory Rate Blood Pressure 144/83 H Blood Pressure [Left Arm] Pulse Oximetry Oxygen Delivery Method <Kelsey Thomas MD - Last Filed: 12/03/23 00:06> Orders Ordered: Discontinued Medications Acetaminophen (Acetaminophen 325 Mg Tablet) 650 mg PO Q6H PRN PRN Reason: Pain, Moderate (4-6) Stop: 12/05/23 21:02 Aspirin (Aspirin 81 Mg Chew Tab) 324 mg PO NOW ONE Stop: 12/02/23 16:16 Last Admin: 12/02/23 16:32 Dose: 324 mg Documented By: ANABEL Heparin Sodium (Porcine) (Heparin 5,000 Unit/Ml Vial) 4,100 unit 60 unit/kg (4100 unit) IV NOW ONE Stop: 12/02/23 16:16 Last Admin: 12/02/23 16:44 Dose: 4,100 unit Documented By: ANABEL Sodium Chloride (Normal Saline 0.9%) 1,000 mls @ 1,000 mls/hr IV BOLUS ONE Stop: 12/02/23 16:31 Last Infusion: 12/02/23 18:05 Dose: Infused Documented By: Infusion: 12/02/23 17:07 Dose: 1,000 mls/hr Documented By: Infusion: 12/02/23 16:36 Dose: 0 mls/hr Documented By: Admin: 12/02/23 16:30 Dose: 1,000 mls/hr Documented By: ANABEL Heparin Sodium/Dextrose (Heparin Drip) 25,000 unit in 500 mls @ 16.329 mls/hr IV CONT MURIEL; Protocol Last Titration: 12/03/23 00:14 Dose: 9 units/kg/hr, 12.247 mls/hr Documented By: ANABEL Co-signed By: GC Titration: 12/02/23 23:51 Dose: 9 units/kg/hr, 12.247 mls/hr Documented By: ANABEL Co-signed By: GC Titration: 12/02/23 22:51 Dose: 0 units/kg/hr, 0 mls/hr Documented By: FLEX Co-signed By: FAY Admin: 12/02/23 16:45 Dose: 12 units/kg/hr, 16.329 mls/hr Documented By: ANABEL Co-signed By: JOSE A Metoprolol Succinate (Metoprolol Er 25 Mg Tablet) 25 mg PO BID [facility] Last Admin: 12/02/23 21:31 Dose: 25 mg Documented By: FAY Vital Signs Vital signs: Vital Signs - 8 hr 12/02/23 16:30 12/02/23 16:30 12/02/23 17:00 Pulse Rate 58 L 57 L Respiratory Rate 15 Blood Pressure 167/99 H Blood Pressure [Left Arm] Pulse Oximetry 95 98 Oxygen Delivery Method Room Air 12/02/23 17:10 12/02/23 17:10 12/02/23 17:30 Pulse Rate 56 L 61 Respiratory Rate 17 14 Blood Pressure 189/93 H Blood Pressure [Left Arm] Pulse Oximetry 97 96 Oxygen Delivery Method 12/02/23 17:31 12/02/23 17:31 12/02/23 18:00 Pulse Rate 61 Respiratory Rate Blood Pressure 167/79 H 155/80 H Blood Pressure [Left Arm] Pulse Oximetry 95 Oxygen Delivery Method Room Air 12/02/23 18:00 12/02/23 18:30 12/02/23 18:30 Pulse Rate 66 62 Respiratory Rate 16 14 Blood Pressure 164/75 H Blood Pressure [Left Arm] Pulse Oximetry 94 93 Oxygen Delivery Method Room Air Room Air 12/02/23 19:00 12/02/23 19:00 12/02/23 19:30 Pulse Rate 62 62 Respiratory Rate 14 11 L Blood Pressure 165/80 H Blood Pressure [Left Arm] Pulse Oximetry 94 94 Oxygen Delivery Method 12/02/23 19:30 12/02/23 20:00 12/02/23 20:00 Pulse Rate 62 Respiratory Rate 12 Blood Pressure 153/73 H 147/91 H Blood Pressure [Left Arm] Pulse Oximetry 96 Oxygen Delivery Method Room Air 12/02/23 20:30 12/02/23 20:30 12/02/23 21:00 Pulse Rate 74 68 Respiratory Rate 22 24 Blood Pressure 132/93 H Blood Pressure [Left Arm] Pulse Oximetry 95 95 Oxygen Delivery Method Room Air 12/02/23 21:01 12/02/23 21:01 12/02/23 21:30 Pulse Rate 72 61 Respiratory Rate 24 18 Blood Pressure 163/82 H Blood Pressure [Left Arm] Pulse Oximetry 95 91 Oxygen Delivery Method 12/02/23 21:31 12/02/23 21:31 12/02/23 21:55 Pulse Rate 67 60 Respiratory Rate 18 Blood Pressure 150/77 H Blood Pressure [Left Arm] 150/77 H Pulse Oximetry 95 95 Oxygen Delivery Method Room Air 12/02/23 21:59 12/02/23 22:00 12/02/23 22:00 Pulse Rate 61 Respiratory Rate 18 Blood Pressure 145/92 H Blood Pressure [Left Arm] Pulse Oximetry 94 Oxygen Delivery Method Room Air Room Air 12/02/23 22:30 12/02/23 22:30 12/02/23 22:41 Pulse Rate 62 63 Respiratory Rate 12 Blood Pressure 134/65 134/65 Blood Pressure [Left Arm] Pulse Oximetry 93 Oxygen Delivery Method Room Air 12/02/23 23:00 12/02/23 23:00 12/02/23 23:30 Pulse Rate 57 L 63 Respiratory Rate Blood Pressure 147/78 H Blood Pressure [Left Arm] Pulse Oximetry 92 97 Oxygen Delivery Method Room Air 12/02/23 23:30 Pulse Rate Respiratory Rate Blood Pressure 144/83 H Blood Pressure [Left Arm] Pulse Oximetry Oxygen Delivery Method MDM - Altered Mental Status <Kelsey López DO - Last Filed: 12/03/23 08:19> Lab Data 12/02/23 14:25 12/02/23 14:25 Labs: Lab Results 12/02/23 12/02/23 12/02/23 Range/Units 14:25 15:12 16:15 WBC 8.0 (4.5-11.0) X10^3/uL RBC 4.30 L (4.5-5.9) X10^6/uL Hgb 13.2 L (13.5-17.5) g/dL Hct 38.4 L (41-53) % MCV 89.3 (80-100) fL MCH 30.6 (26-34) PG MCHC 34.3 (30-36) % RDW 15.1 H (11.6-14.8) % Plt Count 169 (150-400) X10^3/uL Neut % (Auto) 81.3 H (50-75) % Lymph % (Auto) 9.4 L (25-40) % [place] % (Auto) 8.3 (3-14) % Eos % (Auto) 0.5 L (2-4) % Baso % (Auto) 0.5 (0-2) % Neut # (Auto) 6500 (6622-5611) /uL Lymph # (Auto) 800 L (7027-8409) /uL [place] # (Auto) 700 (0-900) /uL Eos # (Auto) 0 (0-450) /uL Baso # (Auto) 0 (0-100) /uL APTT 34 (25.1-36.5) SECONDS Sodium 136 L (137-145) mmol/L Potassium 3.6 (3.4-5.1) mmol/L Chloride 101 (98-107) mmol/L Carbon Dioxide 26 (22-32) mmol/L BUN 29 H (9-20) mg/dL Creatinine 1.40 H (0.66-1.25) mg/dL Estimated GFR 52 L (>60) mL/min BUN/Creatinine Ratio 20.7 (6-22) Glucose 106 (80-110) mg/dL Calcium 9.5 (8.4-10.2) mg/dL Total Bilirubin 2.3 H (0.2-1.3) mg/dL AST 32 (17-59) IU/L ALT 15 (<50) IU/L Alkaline Phosphatase 78 (38-126) U/L Ammonia < 9 L (9-30) umol/L Total Creatine Kinase 43 L (55-170) U/L Troponin I 0.211 H* (0.01-0.034) ng/mL NT-Pro-B Natriuret Pep 1300 H (<450) pg/mL Total Protein 7.5 (6.3-8.2) g/dL Albumin 4.5 (3.5-5.0) g/dL Globulin 3.0 (1.7-4.1) g/dL Albumin/Globulin Ratio 1.5 (1.0-2.8) Urine Color Urine Appearance Urine pH (4.5-8.0) Ur Specific [place] (1.000-1.035) Urine Protein (Negative) Urine Glucose (UA) (Negative) g/dL Urine Ketones (NEGATIVE) Urine Occult Blood (Negative) Urine Nitrate (Negative) Urine Bilirubin (NEGATIVE) Ur Bilirubin Confirm Urine Urobilinogen (0.2) E.U./dL Ur Leukocyte Esterase (NEGATIVE) Salicylates < 1.0 (<20) mg/dL U Opiates 300ng/mL cut (Negative) Ur Oxycodone Screen (Negative) Urine Methadone Screen (Negative) Acetaminophen < 10 (10-30) ug/mL Ur Barbiturates Screen (Negative) U Tricyclic Antidepress (Negative) Ur Phencyclidine Scrn (Negative) Ur Amphetamines Screen (Negative) U Methamphetamines Scrn (Negative) Ur MDMA Scrn (Ecstasy) (Negative) U Benzodiazepines Scrn (Negative) Urine Cocaine Screen (Negative) U Marijuana (THC) Screen (Negative) Urine Specific [place] (Normal) Ethyl Alcohol < 10 ( - 10) mg/dL Ur Creatinine (Normal) SARS-CoV-2 (PCR) Negative (Negative) Influenza A (RT-PCR) Flu a negative (NEGATIVE) Influenza B (RT-PCR) Flu b negative (NEGATIVE) RSV (PCR) Negative (Negative) 12/02/23 12/02/23 12/02/23 Range/Units 16:35 16:50 16:50 WBC (4.5-11.0) X10^3/uL RBC (4.5-5.9) X10^6/uL Hgb (13.5-17.5) g/dL Hct (41-53) % MCV (80-100) fL MCH (26-34) PG MCHC (30-36) % RDW (11.6-14.8) % Plt Count (150-400) X10^3/uL Neut % (Auto) (50-75) % Lymph % (Auto) (25-40) % [place] % (Auto) (3-14) % Eos % (Auto) (2-4) % Baso % (Auto) (0-2) % Neut # (Auto) (7056-8785) /uL Lymph # (Auto) (6758-5999) /uL [place] # (Auto) (0-900) /uL Eos # (Auto) (0-450) /uL Baso # (Auto) (0-100) /uL APTT (25.1-36.5) SECONDS Sodium (137-145) mmol/L Potassium (3.4-5.1) mmol/L Chloride (98-107) mmol/L Carbon Dioxide (22-32) mmol/L BUN (9-20) mg/dL Creatinine (0.66-1.25) mg/dL Estimated GFR (>60) mL/min BUN/Creatinine Ratio (6-22) Glucose (80-110) mg/dL Calcium (8.4-10.2) mg/dL Total Bilirubin (0.2-1.3) mg/dL AST (17-59) IU/L ALT (<50) IU/L Alkaline Phosphatase (38-126) U/L Ammonia (9-30) umol/L Total Creatine Kinase (55-170) U/L Troponin I 0.177 H* (0.01-0.034) ng/mL NT-Pro-B Natriuret Pep (<450) pg/mL Total Protein (6.3-8.2) g/dL Albumin (3.5-5.0) g/dL Globulin (1.7-4.1) g/dL Albumin/Globulin Ratio (1.0-2.8) Urine Color Yellow Urine Appearance Clear Urine pH 5.5 Normal (4.5-8.0) Ur Specific [place] 1.025 (1.000-1.035) Urine Protein Trace H (Negative) Urine Glucose (UA) Negative (Negative) g/dL Urine Ketones 2+ H (NEGATIVE) Urine Occult Blood Negative (Negative) Urine Nitrate Negative (Negative) Urine Bilirubin 1+ H (NEGATIVE) Ur Bilirubin Confirm TNP Urine Urobilinogen >=8.0 (0.2) E.U./dL Ur Leukocyte Esterase Negative (NEGATIVE) Salicylates (<20) mg/dL U Opiates 300ng/mL cut Negative (Negative) Ur Oxycodone Screen Negative (Negative) Urine Methadone Screen Negative (Negative) Acetaminophen (10-30) ug/mL Ur Barbiturates Screen Negative (Negative) U Tricyclic Antidepress Negative (Negative) Ur Phencyclidine Scrn Negative (Negative) Ur Amphetamines Screen Negative (Negative) U Methamphetamines Scrn Negative (Negative) Ur MDMA Scrn (Ecstasy) Negative (Negative) U Benzodiazepines Scrn Negative (Negative) Urine Cocaine Screen Negative (Negative) U Marijuana (THC) Screen Positive H (Negative) Urine Specific [place] Normal (Normal) Ethyl Alcohol ( - 10) mg/dL Ur Creatinine Normal (Normal) SARS-CoV-2 (PCR) (Negative) Influenza A (RT-PCR) (NEGATIVE) Influenza B (RT-PCR) (NEGATIVE) RSV (PCR) (Negative) 12/02/23 Range/Units 22:14 WBC (4.5-11.0) X10^3/uL RBC (4.5-5.9) X10^6/uL Hgb (13.5-17.5) g/dL Hct (41-53) % MCV (80-100) fL MCH (26-34) PG MCHC (30-36) % RDW (11.6-14.8) % Plt Count (150-400) X10^3/uL Neut % (Auto) (50-75) % Lymph % (Auto) (25-40) % [place] % (Auto) (3-14) % Eos % (Auto) (2-4) % Baso % (Auto) (0-2) % Neut # (Auto) (5180-8101) /uL Lymph # (Auto) (8661-8092) /uL [place] # (Auto) (0-900) /uL Eos # (Auto) (0-450) /uL Baso # (Auto) (0-100) /uL APTT 111 H* D (25.1-36.5) SECONDS Sodium (137-145) mmol/L Potassium (3.4-5.1) mmol/L Chloride (98-107) mmol/L Carbon Dioxide (22-32) mmol/L BUN (9-20) mg/dL Creatinine (0.66-1.25) mg/dL Estimated GFR (>60) mL/min BUN/Creatinine Ratio (6-22) Glucose (80-110) mg/dL Calcium (8.4-10.2) mg/dL Total Bilirubin (0.2-1.3) mg/dL AST (17-59) IU/L ALT (<50) IU/L Alkaline Phosphatase (38-126) U/L Ammonia (9-30) umol/L Total Creatine Kinase (55-170) U/L Troponin I (0.01-0.034) ng/mL NT-Pro-B Natriuret Pep (<450) pg/mL Total Protein (6.3-8.2) g/dL Albumin (3.5-5.0) g/dL Globulin (1.7-4.1) g/dL Albumin/Globulin Ratio (1.0-2.8) Urine Color Urine Appearance Urine pH (4.5-8.0) Ur Specific [place] (1.000-1.035) Urine Protein (Negative) Urine Glucose (UA) (Negative) g/dL Urine Ketones (NEGATIVE) Urine Occult Blood (Negative) Urine Nitrate (Negative) Urine Bilirubin (NEGATIVE) Ur Bilirubin Confirm Urine Urobilinogen (0.2) E.U./dL Ur Leukocyte Esterase (NEGATIVE) Salicylates (<20) mg/dL U Opiates 300ng/mL cut (Negative) Ur Oxycodone Screen (Negative) Urine Methadone Screen (Negative) Acetaminophen (10-30) ug/mL Ur Barbiturates Screen (Negative) U Tricyclic Antidepress (Negative) Ur Phencyclidine Scrn (Negative) Ur Amphetamines Screen (Negative) U Methamphetamines Scrn (Negative) Ur MDMA Scrn (Ecstasy) (Negative) U Benzodiazepines Scrn (Negative) Urine Cocaine Screen (Negative) U Marijuana (THC) Screen (Negative) Urine Specific [place] (Normal) Ethyl Alcohol ( - 10) mg/dL Ur Creatinine (Normal) SARS-CoV-2 (PCR) (Negative) Influenza A (RT-PCR) (NEGATIVE) Influenza B (RT-PCR) (NEGATIVE) RSV (PCR) (Negative) Point of Care Testing Glucose POC [address] scan - head: Radiologist's Impression: [address] [address] [address] Scan Report Signed Patient: Matteo Zayas MR#: [id number] : 1950 Acct:[id number] Age/Sex: 73 / M Date of Service: 12/02/23 Loc: ED Accession Number: [id number] Procedure: CT head/brain wo con Ordering Provider: Kelsey López D.O. PROCEDURE: CT HEAD/BRAIN WO CON INDICATIONS: confusion TECHNIQUE: Noncontrast 4.5 mm thick angled axial sections acquired from the foramen magnum to the vertex, with coronal and sagittal reformats. For radiation dose reduction, the following was used: automated exposure control, adjustment of mA and/or kV according to patient size. COMPARISON: [facility], CT, CT HEAD/BRAIN WO CON, 09/04/2020, 14:38. FINDINGS: Image quality: Diagnostic. CSF spaces: Basal cisterns are patent. No extra-axial fluid collections. The ventricles are symmetric in size and shape. Brain: No intracranial bleeds or masses. There is cerebral volume loss for age, with resultant ventricular and sulcal prominence. There are periventricular and deep white matter chronic small vessel ischemic changes. There is intracranial internal carotid artery atherosclerosis. Skull and face: Calvarium and visualized facial bones appear intact, without suspicious lesions. Sinuses: Visualized sinuses and mastoids are clear. IMPRESSION: No acute intracranial pathology. Dictated by: Aviav Long M.D. on 12/02/2023 at 13:55 Approved by: Aviva Long M.D. on 12/02/2023 at 13:56 Chest x-ray: Radiologist's Impression: Matteo Zayas??73??M??1950 ? Allergy/Adv: No Known Drug Allergies Close Head CT (Signed) Aviva Long - 12/02/23 Chest X-Ray (Signed) Aviva Long - 12/02/23 Finger X-Ray (Signed) Patrick Jolley - 02/02/21 Head/Neck CTA (Signed) Skyler Lo - 09/04/20 Chest X-Ray (Signed) Mathew Orellana - 09/04/[address] (Signed) Mathew Orellana - 09/04/20 Launch?Image [address] [address] XRay Report Signed Patient: Matteo Zayas MR#: [id number] : 1950 Acct:[id number] Age/Sex: 73 / M Date of Service: 12/02/23 Loc: ED Accession Number: [id number] Procedure: XR chest 1V Ordering Provider: Kelsey López D.O. PROCEDURE: XR CHEST 1V INDICATIONS: altered mental status TECHNIQUE: One view of the chest was acquired. COMPARISON: [facility], CR, XR CHEST 1V, 09/04/2020, 15:33. FINDINGS: Surgical changes and devices: Aortic stent. Lungs and pleura: Lungs are clear. No pleural effusions or pneumothorax. Mediastinum: Mediastinal contours appear normal. Heart size is normal. Bones and chest wall: No suspicious bony lesions. Overlying soft tissues appear unremarkable. IMPRESSION: No acute cardiopulmonary abnormality is seen. Dictated by: Aviva Long M.D. on 12/02/2023 at 13:50 Approved by: Aviva Long M.D. on 12/02/2023 at 13:50 ECG Data Attestation: I personally reviewed and interpreted this ECG as follows: Prior ECG tracings: available for review Interpretation: Sinus bradycardia rate of 54 FL 180 QRS 8142 QTC of 409. Right bundle-branch block, T-wave changes in lateral leads V3 4 5 and 6. Patient does have prior EKG from 09/04/2020 which overall has similar appearing EKG. EKG 2. Sinus bradycardia rate of 54 FL 180 QRS 142 QTC 409 right bundle-branch block T-wave changes ST depression with inverted T-waves present involved somewhat. Right bundle-branch block is still present. MDM Narrative Medical decision making narrative: This is 73-year-old male with known history of coronary artery disease recently reported TAVR for the aortic valve proximally 1-2 months ago in [place] and been told that he is supposed to go back for more stents. Patient states he is felt very nauseated sweaty and unwell today. Denies active chest pain but had positive troponin is trending down words at this time does have appear to have some new EKG changes with depression inverted T-waves. Labs show hemoglobin at baseline at 13 white count of 8, platelets of 169 creatinine appears at baseline at 1.4 prior was 1.38, otherwise appropriate glucose, electrolytes, negative LFTs but positive bilirubin of 2.3. Ammonia was negative with the 9. Troponin was positive at 0.211 and trended down words to 0.177. BNP is 1300. Patient's urine positive for ketones, ETOH, aspirin and Tylenol levels were all negative. Patient's head CT and chest x-ray were negative. Patient did have carbon monoxide level which was negative. This was tested secondary to having a reported gas stove top on in the house. He states he was just trying to he did up. They were guns reported to be sitting around but unclear if this is different or normal from his usual state of affairs. Patient is not well known to myself there was concern about suicidal ideation but patient is interested in treatment, he does not express any to myself. He states he does have significant memory issues. Dr. Coleman cardiology at [facility]: Patient had cardiac catheterization 923 appears patient had mid RCA restenosis and proximal mid LAD at that time. She does note that he did have a TAVR in September of 2023 at [place]. And from what she can tell from his notes which are not able to be seen completely she suspects he is supposed to be returning for Re catheterization and potential stenting. Agrees with plan to reach out to [facility] for possible transfer for continuity of care and current heparin treatment. Dr. Muñoz cardiology, [facility]. Reviewed findings from today they agree with plan for transfer continue heparin. Asked for us to chat with hospitalist for transfer for potential cardiac catheterization. Signed out to Dr. Thomas while awaiting call back from hospitalist at [facility] -no available inpatient beds at [facility]. Patient did get accepted to [facility]. At time of transfer patient hemodynamically stable, no new events reported. <Kelsey Thomas MD - Last Filed: 12/03/23 00:06> Lab Data Labs: Lab Results 12/02/23 12/02/23 12/02/23 Range/Units 14:25 15:12 16:15 WBC 8.0 (4.5-11.0) X10^3/uL RBC 4.30 L (4.5-5.9) X10^6/uL Hgb 13.2 L (13.5-17.5) g/dL Hct 38.4 L (41-53) % MCV 89.3 (80-100) fL MCH 30.6 (26-34) PG MCHC 34.3 (30-36) % RDW 15.1 H (11.6-14.8) % Plt Count 169 (150-400) X10^3/uL Neut % (Auto) 81.3 H (50-75) % Lymph % (Auto) 9.4 L (25-40) % [place] % (Auto) 8.3 (3-14) % Eos % (Auto) 0.5 L (2-4) % Baso % (Auto) 0.5 (0-2) % Neut # (Auto) 6500 (5641-8935) /uL Lymph # (Auto) 800 L (3357-6150) /uL [place] # (Auto) 700 (0-900) /uL Eos # (Auto) 0 (0-450) /uL Baso # (Auto) 0 (0-100) /uL APTT 34 (25.1-36.5) SECONDS Sodium 136 L (137-145) mmol/L Potassium 3.6 (3.4-5.1) mmol/L Chloride 101 (98-107) mmol/L Carbon Dioxide 26 (22-32) mmol/L BUN 29 H (9-20) mg/dL Creatinine 1.40 H (0.66-1.25) mg/dL Estimated GFR 52 L (>60) mL/min BUN/Creatinine Ratio 20.7 (6-22) Glucose 106 (80-110) mg/dL Calcium 9.5 (8.4-10.2) mg/dL Total Bilirubin 2.3 H (0.2-1.3) mg/dL AST 32 (17-59) IU/L ALT 15 (<50) IU/L Alkaline Phosphatase 78 (38-126) U/L Ammonia < 9 L (9-30) umol/L Total Creatine Kinase 43 L (55-170) U/L Troponin I 0.211 H* (0.01-0.034) ng/mL NT-Pro-B Natriuret Pep 1300 H (<450) pg/mL Total Protein 7.5 (6.3-8.2) g/dL Albumin 4.5 (3.5-5.0) g/dL Globulin 3.0 (1.7-4.1) g/dL Albumin/Globulin Ratio 1.5 (1.0-2.8) Urine Color Urine Appearance Urine pH (4.5-8.0) Ur Specific [place] (1.000-1.035) Urine Protein (Negative) Urine Glucose (UA) (Negative) g/dL Urine Ketones (NEGATIVE) Urine Occult Blood (Negative) Urine Nitrate (Negative) Urine Bilirubin (NEGATIVE) Ur Bilirubin Confirm Urine Urobilinogen (0.2) E.U./dL Ur Leukocyte Esterase (NEGATIVE) Salicylates < 1.0 (<20) mg/dL U Opiates 300ng/mL cut (Negative) Ur Oxycodone Screen (Negative) Urine Methadone Screen (Negative) Acetaminophen < 10 (10-30) ug/mL Ur Barbiturates Screen (Negative) U Tricyclic Antidepress (Negative) Ur Phencyclidine Scrn (Negative) Ur Amphetamines Screen (Negative) U Methamphetamines Scrn (Negative) Ur MDMA Scrn (Ecstasy) (Negative) U Benzodiazepines Scrn (Negative) Urine Cocaine Screen (Negative) U Marijuana (THC) Screen (Negative) Urine Specific [place] (Normal) Ethyl Alcohol < 10 ( - 10) mg/dL Ur Creatinine (Normal) SARS-CoV-2 (PCR) Negative (Negative) Influenza A (RT-PCR) Flu a negative (NEGATIVE) Influenza B (RT-PCR) Flu b negative (NEGATIVE) RSV (PCR) Negative (Negative) 12/02/23 12/02/23 12/02/23 Range/Units 16:35 16:50 16:50 WBC (4.5-11.0) X10^3/uL RBC (4.5-5.9) X10^6/uL Hgb (13.5-17.5) g/dL Hct (41-53) % MCV (80-100) fL MCH (26-34) PG MCHC (30-36) % RDW (11.6-14.8) % Plt Count (150-400) X10^3/uL Neut % (Auto) (50-75) % Lymph % (Auto) (25-40) % [place] % (Auto) (3-14) % Eos % (Auto) (2-4) % Baso % (Auto) (0-2) % Neut # (Auto) (4662-1023) /uL Lymph # (Auto) (3529-0448) /uL [place] # (Auto) (0-900) /uL Eos # (Auto) (0-450) /uL Baso # (Auto) (0-100) /uL APTT (25.1-36.5) SECONDS Sodium (137-145) mmol/L Potassium (3.4-5.1) mmol/L Chloride (98-107) mmol/L Carbon Dioxide (22-32) mmol/L BUN (9-20) mg/dL Creatinine (0.66-1.25) mg/dL Estimated GFR (>60) mL/min BUN/Creatinine Ratio (6-22) Glucose (80-110) mg/dL Calcium (8.4-10.2) mg/dL Total Bilirubin (0.2-1.3) mg/dL AST (17-59) IU/L ALT (<50) IU/L Alkaline Phosphatase (38-126) U/L Ammonia (9-30) umol/L Total Creatine Kinase (55-170) U/L Troponin I 0.177 H* (0.01-0.034) ng/mL NT-Pro-B Natriuret Pep (<450) pg/mL Total Protein (6.3-8.2) g/dL Albumin (3.5-5.0) g/dL Globulin (1.7-4.1) g/dL Albumin/Globulin Ratio (1.0-2.8) Urine Color Yellow Urine Appearance Clear Urine pH 5.5 Normal (4.5-8.0) Ur Specific [place] 1.025 (1.000-1.035) Urine Protein Trace H (Negative) Urine Glucose (UA) Negative (Negative) g/dL Urine Ketones 2+ H (NEGATIVE) Urine Occult Blood Negative (Negative) Urine Nitrate Negative (Negative) Urine Bilirubin 1+ H (NEGATIVE) Ur Bilirubin Confirm TNP Urine Urobilinogen >=8.0 (0.2) E.U./dL Ur Leukocyte Esterase Negative (NEGATIVE) Salicylates (<20) mg/dL U Opiates 300ng/mL cut Negative (Negative) Ur Oxycodone Screen Negative (Negative) Urine Methadone Screen Negative (Negative) Acetaminophen (10-30) ug/mL Ur Barbiturates Screen Negative (Negative) U Tricyclic Antidepress Negative (Negative) Ur Phencyclidine Scrn Negative (Negative) Ur Amphetamines Screen Negative (Negative) U Methamphetamines Scrn Negative (Negative) Ur MDMA Scrn (Ecstasy) Negative (Negative) U Benzodiazepines Scrn Negative (Negative) Urine Cocaine Screen Negative (Negative) U Marijuana (THC) Screen Positive H (Negative) Urine Specific [place] Normal (Normal) Ethyl Alcohol ( - 10) mg/dL Ur Creatinine Normal (Normal) SARS-CoV-2 (PCR) (Negative) Influenza A (RT-PCR) (NEGATIVE) Influenza B (RT-PCR) (NEGATIVE) RSV (PCR) (Negative) 12/02/23 Range/Units 22:14 WBC (4.5-11.0) X10^3/uL RBC (4.5-5.9) X10^6/uL Hgb (13.5-17.5) g/dL Hct (41-53) % MCV (80-100) fL MCH (26-34) PG MCHC (30-36) % RDW (11.6-14.8) % Plt Count (150-400) X10^3/uL Neut % (Auto) (50-75) % Lymph % (Auto) (25-40) % [place] % (Auto) (3-14) % Eos % (Auto) (2-4) % Baso % (Auto) (0-2) % Neut # (Auto) (2437-4972) /uL Lymph # (Auto) (8799-3106) /uL [place] # (Auto) (0-900) /uL Eos # (Auto) (0-450) /uL Baso # (Auto) (0-100) /uL APTT 111 H* D (25.1-36.5) SECONDS Sodium (137-145) mmol/L Potassium (3.4-5.1) mmol/L Chloride (98-107) mmol/L Carbon Dioxide (22-32) mmol/L BUN (9-20) mg/dL Creatinine (0.66-1.25) mg/dL Estimated GFR (>60) mL/min BUN/Creatinine Ratio (6-22) Glucose (80-110) mg/dL Calcium (8.4-10.2) mg/dL Total Bilirubin (0.2-1.3) mg/dL AST (17-59) IU/L ALT (<50) IU/L Alkaline Phosphatase (38-126) U/L Ammonia (9-30) umol/L Total Creatine Kinase (55-170) U/L Troponin I (0.01-0.034) ng/mL NT-Pro-B Natriuret Pep (<450) pg/mL Total Protein (6.3-8.2) g/dL Albumin (3.5-5.0) g/dL Globulin (1.7-4.1) g/dL Albumin/Globulin Ratio (1.0-2.8) Urine Color Urine Appearance Urine pH (4.5-8.0) Ur Specific [place] (1.000-1.035) Urine Protein (Negative) Urine Glucose (UA) (Negative) g/dL Urine Ketones (NEGATIVE) Urine Occult Blood (Negative) Urine Nitrate (Negative) Urine Bilirubin (NEGATIVE) Ur Bilirubin Confirm Urine Urobilinogen (0.2) E.U./dL Ur Leukocyte Esterase (NEGATIVE) Salicylates (<20) mg/dL U Opiates 300ng/mL cut (Negative) Ur Oxycodone Screen (Negative) Urine Methadone Screen (Negative) Acetaminophen (10-30) ug/mL Ur Barbiturates Screen (Negative) U Tricyclic Antidepress (Negative) Ur Phencyclidine Scrn (Negative) Ur Amphetamines Screen (Negative) U Methamphetamines Scrn (Negative) Ur MDMA Scrn (Ecstasy) (Negative) U Benzodiazepines Scrn (Negative) Urine Cocaine Screen (Negative) U Marijuana (THC) Screen (Negative) Urine Specific [place] (Normal) Ethyl Alcohol ( - 10) mg/dL Ur Creatinine (Normal) SARS-CoV-2 (PCR) (Negative) Influenza A (RT-PCR) (NEGATIVE) Influenza B (RT-PCR) (NEGATIVE) RSV (PCR) (Negative) Point of Care Testing Glucose POC 113 MDM Narrative Medical decision making narrative: This is 73-year-old male with known history of coronary artery disease recently reported TAVR for the aortic valve proximally 1-2 months ago in [place] and been told that he is supposed to go back for more stents. Patient states he is felt very nauseated sweaty and unwell today. Denies active chest pain but had positive troponin is trending down words at this time does have appear to have some new EKG changes with depression inverted T-waves. Labs show hemoglobin at baseline at 13 white count of 8, platelets of 169 creatinine appears at baseline at 1.4 prior was 1.38, otherwise appropriate glucose, electrolytes, negative LFTs but positive bilirubin of 2.3. Ammonia was negative with the 9. Troponin was positive at 0.211 and trended down words to 0.177. BNP is 1300. Patient's urine positive for ketones, ETOH, aspirin and Tylenol levels were all negative. Patient's head CT and chest x-ray were negative. Patient did have carbon monoxide level which was negative. This was tested secondary to having a reported gas stove top on in the house. He states he was just trying to he did up. They were guns reported to be sitting around but unclear if this is different or normal from his usual state of affairs. Patient is not well known to myself there was concern about suicidal ideation but patient is interested in treatment, he does not express any to myself. He states he does have significant memory issues. Dr. Coleman cardiology at [facility]: Patient had cardiac catheterization 923 appears patient had mid RCA restenosis and proximal mid LAD at that time. She does note that he did have a TAVR in September of 2023 at [place]. And from what she can tell from his notes which are not able to be seen completely she suspects he is supposed to be returning for Re catheterization and potential stenting. Agrees with plan to reach out to [facility] for possible transfer for continuity of care and current heparin treatment. Dr. Muñoz cardiology, [facility]. Reviewed findings from today they agree with plan for transfer continue heparin. Asked for us to chat with hospitalist for transfer for potential cardiac catheterization. [facility] -no available inpatient beds at [facility]. Patient did get accepted to [facility]. At time of transfer patient hemodynamically stable, no new events reported. Discharge Plan Departure Patient Disposition: [facility] Clinical Impression: Non-ST elevation RI (NSTEMI) Prescriptions: No Action amiodarone 200 mg tablet 200 mg PO DAILY pantoprazole 20 mg tablet,delayed release (DR/EC) 20 mg PO DAILY losartan 25 mg tablet 25 mg PO DAILY metoprolol succinate 25 mg tablet extended release 24 hr 25 mg PO BID Eliquis 5 mg tablet 5 mg PO BID Rx Instructions: script ended in October. Pt does not know if he is still taking it.
[2023-12-02 15:40] LABS: NT-proBNP (BNP-Adult 18+) 1300 pg/mL (<450)
[2023-12-02 15:56] LABS: Influenza A - CEPHEID Flu A NEGATIVE (NEGATIVE); Influenza B - CEPHEID Flu B NEGATIVE (NEGATIVE); Respiratory Syncytial Virus Negative (Negative)
[2023-12-02 16:05] LABS: COVID-19 CEPHEID 4-PLEX PCR Negative (Negative)
[2023-12-02] MEDS: SODIUM CHLORIDE 0.9% 1,000 ML 1000 ML IV (16:30)
[2023-12-02] MEDS: ASPIRIN 81 MG CHEW TAB 324 MG PO (16:32)
[2023-12-02] MEDS: HEPARIN 5,000 UNIT/ML VIAL 4100 UNIT IV (16:44)
[2023-12-02] MEDS: HEPARIN DRIP 25,000 UNIT/500 ML IV.SOLN 16.329 UNIT IV (16:45)
[2023-12-02 16:51] LABS: PTT Partial Thromboplastin Tim 34 SECONDS (25.1-36.5)
--- NOTE | 2023-12-02 16:57 | PC.NURSE ---
Pt denies chest pain. States, I just feel weird.
[2023-12-02 17:12] LABS: Appearance Urine UA CLEAR; Color Urine UA YELLOW; Glucose Urine UA NEGATIVE (Negative); Ketones Urine UA 2+ (NEGATIVE); Leukocyte Esterase Urine UA NEGATIVE (NEGATIVE); Nitrite Urine UA NEGATIVE (Negative); Occult Blood Urine UA NEGATIVE (Negative); Protein Urine UA TRACE (Negative); Specific Gravity Urine UA 1.025 (1.000-1.035); Urobilinogen Urine UA >=8.0 E.U./dL (0.2); pH Urine UA 5.5 (4.5-8.0)
[2023-12-02 17:13] LABS: Troponin I 0.177 ng/mL (0.01-0.034)
[2023-12-02 17:14] LABS: UR Morphine/Opiate cutoff 300 Negative (Negative); Ur Creatinine Normal (Normal); Ur Specific Gravity Normal (Normal); Urine Amphetamines Negative (Negative); Urine Barbiturates Negative (Negative); Urine Benzodiazepines Negative (Negative); Urine Cocaine Negative (Negative); Urine MDMA Negative (Negative); Urine Methadone Negative (Negative); Urine Methamphetamines Negative (Negative); Urine Oxycodone Negative (Negative); Urine Phencyclidine Negative (Negative); Urine Tetrahydrocannabinol Positive (Negative); Urine Tricyclic Antidepressant Negative (Negative); Urine pH Normal (Normal)
[2023-12-02 17:18] LABS: Bilirubin Urine UA 1+ (NEGATIVE)
--- NOTE | 2023-12-02 18:05 | PC.NURSE ---
Pt continues to deny any pain, including chest pain.
--- NOTE | 2023-12-02 20:25 | PC.NURSE ---
Pt denies chest pain or any discomfort at this time.
[2023-12-02] MEDS: METOPROLOL ER 25 MG TABLET PO (21:31)
--- NOTE | 2023-12-02 22:18 | PC.NURSE ---
Unable to complete home medication list as patient can not accurately remember it and does not have a list in his possession.
--- NOTE | 2023-12-02 22:42 | PC.NURSE ---
Pt declines bilateral SCD. Education given regarding why they are used and patient still declines.
[2023-12-02 22:49] LABS: PTT Partial Thromboplastin Tim 111 SECONDS (25.1-36.5)
[2023-12-03] VITALS: BP 154/85; PULSE 56; O2SAT 94
== END 2023-12-03 00:14 | disposition short-term general hospital (02) ==
PROVIDERS: Emergency Provider Emergency Medicine
DX: I21.4 Non-ST elevation (NSTEMI) myocardial infarction (principal); R41.0 Disorientation, unspecified; Z95.2 Presence of prosthetic heart valve; Z95.5 Presence of coronary angioplasty implant and graft; Z79.01 Long term (current) use of anticoagulants; Z20.822 Contact with and (suspected) exposure to COVID-19
CPT/HCPCS: 0241U; 36415; 70450; 71045; 80053; 80305; 80320; 80329; 81003; 82140; 82550; 82962; 83880; 84484; 85025; 85730; 88740; 93005; 96365; 96366; 96375; 99285; G0480; J1644